=== PATIENT | male | born 1940 | race Caucasian/White ===

== ENCOUNTER 2023-05-16 11:48 | Emergency (ER) | payer MEDICARE, OTHER ==
[~2023-05-16] VITALS: Ht 190.5 cm; Wt 90.7 kg
[2023-05-16 13:30] VITALS: BP 126/71
== END 2023-05-16 13:45 | disposition home or self-care (01) ==
LOC: ER 11:48
DX: Z46.6 Encounter for fitting and adjustment of urinary device (principal); R31.9 Hematuria, unspecified
CPT/HCPCS: 99283